=== PATIENT | female | born 1990 | race Caucasian/White ===

== ENCOUNTER 2016-06-03 09:33 | Emergency (ER) | payer OTHER ==
[~2016-06-03] VITALS: Ht 157.5 cm; Wt 59.0 kg
--- NOTE | 2016-06-03 09:47 | Emergency Room Report ---
History of Present Illness Time Seen by MD Hampton Presenting Problem in Triage Pt arrived:Walked Presenting Problem:AREA TO RIGHT SHOULDER REOPENED AFTER SUTURE REMOVAL. Onset of symptoms date/time:/ or onset unknown for:MEDICAL HX UNKNOWN Treatment Prior to Arrival: [employer] Provided by: Sepsis Risk Assessment: Temp: 98.4 B/P: 113/73 MAP: 86 Pulse: 73 Resp: 18 Recent fever? N Clinical Suspician of Infection? N Mental Status: 1 - Regular (Normal Baseline) Sepsis Risk:Low Sepsis Risk Have you (or family members/close friends) recently traveled outside the [place]? N If Yes, where/when: Have you had exposure to infectious disease within the past month? N TB? Other? Specify: Source patient, RN notes reviewed Exam Limitations no limitations Comment This is a 26-year-old female who presents to the emergency Department for wound check. 9 days ago she had a cyst removed from the lateral aspect of the RIGHT shoulder. Sutures were removed 2 days ago. She has since had opening of the wound and presents for wound check. No purulent discharge, fever, shoulder joint pain. History Medical History General CAD? No Angina: No OK: No Hypertension? No Hyperlipidemia? No CHF? No DVT? No PE? No COPD? No Asthma? No Anemia? No GERD? No Gastric ulcers? No GI Bleed? No Hernia? No Thyroid Problems? No Hypothyroidism? No CVA? No Seizures? No Diabetes? No Renal Insuffiency? No End Stage Renal Disease? No UTI? No Stones? No BPH? No GB Disease: No Nephritic Syndrome? No Asplenia? No Hepatitis? No Sickle Cell Disease? No Arthritis? No Migraines? No Cataracts? No Glaucoma? No MRSA? No HIV? No TB? No Anxiety? No Depression? No Cancer? No More? No Immunization Hx Ped.Immunizations UTD Yes DT/Tetanus 5-10 Years Ago Surgical Hx Previous Surgery?Y CYST REMOVED R SHOULDER [employer] Hx LMP Now Social History Smoking Hx Smoker: Never Smoker Tobacco: No Are you/the child exposed to second-hand smoke: No Alcohol Alcohol: No Review of Systems All Other Systems Reviewed and Negative Physical Exam Vital Signs Vital Signs Date Time Temp Pulse Resp B/P Pulse O2 O2 Flow FiO2 Ox Delivery Rate 06/03 0935 98.4 73 18 113/73 96 - WBC >12,000 or <4,000 or 10% bands? 2 or more SIRS Criteria Met? B/P:113/73 MAP:86 Creatinine >2.0? UA output<0.5ml/kg/hr for 2 hrs? Platelet count >100,000? Lactate >2.0mmol/1? INR >1.2 or PTT > than 60 sec? Evidence of Organ Dysfunction? Provider documented clinical suspician of infection? N Sepsis Criteria Count: 0 Sepsis Risk: Low Sepsis Risk General Appearance normal appearance, WD/WN, no apparent distress Respiratory Status Yes: trachea midline, chest symmetrical. No: respiratory distress. Cardiovascular regular rate/rhythm Neurologic alert, oriented x 3 Skin patient with 1 cm diameter shallow surgical bed through skin and subcutaneous tissue, no involvement of muscle. No purulent discharge, induration or fluctuant mass. Good beefy-red granulation tissue beginning in the wound bed.no erythema or cellulitis. Medical Decision Making LABS/Meds/Orders Pt receiving controlled substance in ED? No Departure Departure Disposition DC Home or Self Care(routine) Clinical Impression Primary Impression: Visit for wound check Condition STABLE Referrals JYOTHI GIBBS (Family) Additional Instructions Return to the emergency department if you develop any increasing redness around the wound, swelling, fever, foul-smelling discharge from the wound. Otherwise, keep the wound clean and bandaged until it is healed. Follow up with the provider who performed the surgery in 2-3 days for a wound check. ED Critical Care Critical Care No Comments Patient has an open wound with suture removal 2 days ago, so was not appropriate for repeat closure and will need to heal by secondary intention. The wound is shallow, no involvement of muscle. There are no signs of infection at this time. I have given the patient strict return precautions and asked her to follow up with her provider who performed the surgery in 2-3 days for a wound check. at 0946
[2016-06-03 09:49] VITALS: BP 113/73
== END 2016-06-03 09:50 | disposition home or self-care (01) ==
LOC: ER 09:33
DX: L72.0 Epidermal cyst (principal); Y83.8 Other surgical procedures as the cause of abnormal reaction of the patient, or of later complication, without mention of misadventure at the time of the procedure